=== PATIENT | male | born 1995 | race American Indian/Alaskan Native ===

== ENCOUNTER 2017-11-17 09:08 | Emergency (ER) | payer MEDICAID ==
[2017-11-17 09:14] VITALS: BP 136/90; PULSE 90; RESP 16; TEMP 97.6; O2SAT 100
[2017-11-17] MEDS ORDERED: cefTRIAXone (Rocephin) 250 mg Inj IM STA (09:57)
[2017-11-17 10:04] LABS: RBC URINE 5 /hpf (0-3); URINE BACTERIA RARE (<OCC); URINE BILIRUBIN NEGATIVE (NEGATIVE); URINE BLOOD NEGATIVE (NEGATIVE); URINE COLOR Yellow (YELLOW); URINE GLUCOSE (UA) NORMAL (Normal); URINE KETONE NEGATIVE (NEGATIVE); URINE LEUKOCYTE ESTERASE 2+ Leu/uL (Negative); URINE PROTEIN NEGATIVE (NEGATIVE); WBC URINE 51 /hpf (0-5)
--- NOTE | 2017-11-17 10:11 | C.PDOC ---
History Of Present Illness Adelfo Francisco is a 22 year old male, with no past medical history, who presents to the emergency department complaining of discomfort with urination and discharge onset for x1 month. Patient states he is sexually active and most of the discomfort is at the end of urination. He denies any nausea, diarrhea, vomit , fever, or chills. No further medical complaints. PMD: None provided. Time Seen by Provider: 11/17/17 09:32 Chief Complaint (Nursing): Male Genitourinary History Per: Patient History/Exam Limitations: no limitations Onset/Duration Of Symptoms: Days (x1 month) Current Symptoms Are (Timing): Still Present Severity: Mild Pain Scale Rating Of: 7 Quality Of Discomfort: "Pain" Associated Symptoms: Urinary Symptoms (discharge and discomfort). denies: Fever , Chills, Nausea, Vomiting, Diarrhea Past Medical History Reviewed: Historical Data, Nursing Documentation, Vital Signs Vital Signs: Last Vital Signs Temp 97.6 F 11/17/17 09:10 Pulse 90 11/17/17 09:10 Resp 16 11/17/17 10:17 BP 136/90 11/17/17 09:10 Pulse Ox 100 11/17/17 10:11 - Medical History PMH: Asthma Surgical History: No Surg Hx Family History: States: Unknown Family Hx - Social History Hx Tobacco Use: Yes (light smoker <10 cigarettes daily) Hx Alcohol Use: No Hx Substance Use: No - Immunization History Hx Tetanus Toxoid Vaccination: No Hx Influenza Vaccination: No Hx Pneumococcal Vaccination: No Review Of Systems Except As Marked, All Systems Reviewed And Found Negative. Constitutional: Negative for: Fever, Chills Gastrointestinal: Negative for: Nausea, Vomiting, Diarrhea Genitourinary: Positive for: Dysuria, Penile Discharge Physical Exam - Physical Exam Appears: Well, No Acute Distress Skin: Normal Color, Warm, Dry Eye(s): bilateral: Normal Inspection, PERRL, EOMI Neck: Normal ROM, Supple Cardiovascular: Rhythm Regular Respiratory: Normal Breath Sounds, No Accessory Muscle Use Gastrointestinal/Abdominal: Normal Exam, Soft, No Tenderness, No Guarding, No Rebound Back: Normal Inspection, No CVA Tenderness Male Genital: No Normal Inspection (clear discharge from penis. Both testes descended. No cellulitic process) Extremity: Normal ROM, No Deformity, No Swelling Neurological/Psych: Oriented x3, Normal Speech ED Course And Treatment O2 Sat by Pulse Oximetry: 100 (RA) Pulse Ox Interpretation: Normal Medical Decision Making Medical Decision Making: Initial Impression: Urethritis Initial Plan: --Chlamydia/GC RNA, TMA --Motrin 600 mg PO --Rocephin 250 ml IM --Zithromax 1,000 mg PO --Urine culture --Urinalysis --reevaluation 10:08 Upon provider reevaluation patient is feeling better, is medically stable, and requires no further treatment in the ED at this time. Patient will be discharged home. Counseling was provided and all questions were answered regarding diagnosis and need for follow up with urologist. There is agreement to discharge plan. Return if symptoms persist or worsen. Disposition Counseled Patient/Family Regarding: Diagnosis, Need For Followup - Disposition Referrals: Dmitri Angulo MD [Staff Provider] - Disposition: HOME/ ROUTINE Disposition Time: 10:09 Condition: GOOD Additional Instructions: follow up with urology in 2 days call to make an appointment no sexual activity x one week advise partner to be treated return to hospital if symptoms worsens or progress Instructions: Nonspecific Urethritis in Men (ED) Forms: [employer] (Vietnamese) - Clinical Impression Clinical Impression: Urethritis - Scribe Statement Dominguez Resendez Provider Attestation: All medical record entries made by the Rodneyibe were at my direction and personally dictated by me. I have reviewed the chart and agree that the record accurately reflects my personal performance of the history, physical exam, medical decision making, and the department course for this patient. I have also personally directed, reviewed, and agree with the discharge instructions and disposition.
== END 2017-11-17 10:17 | disposition home or self-care (01) ==
LOC: C.ER 09:08
DX: N34.2 Other urethritis (principal)
CPT/HCPCS: 81001; 87086; 87491; 87591; 96372; 99283; J0696